=== PATIENT | male | born 1970 | race Caucasian/White ===

== ENCOUNTER 2017-09-05 00:57 | Emergency (ER) | payer SELFPAY ==
[~2017-09-05] VITALS: Ht 172.7 cm; Wt 80.0 kg
[2017-09-05 01:18] VITALS: BP 157/91; PULSE 82; RESP 16; TEMP 97.6; O2SAT 100
[2017-09-05] MEDS ORDERED: LIDOCAINE 1%/EPINEPHrine 1:100,000 SOLN 20 ML VIAL INFIL ONE (02:30)
[2017-09-05] MEDS ORDERED: TETANUS/DIPHTHERIA TOXOID ADULT 0.5 ML VIAL IM ONE (02:30)
--- NOTE | 2017-09-05 02:31 | PD ---
HPI Chief Complaint: Fall Time Seen by Provider: 02:26 Travel History International Travel<30 days: No Contact w/Intl Traveler<30days: No Traveled to known affect area: No History of Present Illness HPI 47-year-old male presents for evaluation after fall. Apparently became intoxicated and tripped and fell and hit his head against the ground. No loss of consciousness. He has a laceration of the occipital scalp with some pain. Aggravated by falling. Last tetanus vaccination unknown. No other complaints. PFSH Past Medical History Hypertension: Yes Past Surgical History Other Surgery: Yes (HERNIA REPAIR ) Social History Alcohol Use: Yes Tobacco Use: Yes Substance Use: No Allergies-Medications (Allergen,Severity, Reaction): Coded Allergies: No Known Allergies (Unverified , 09/05/17) Reported Meds & Prescriptions Reported Meds & Active Scripts Active No Active Prescriptions or Reported Medications Review of Systems Except as stated in HPI: all other systems reviewed are Neg Physical Exam Narrative GENERAL: Disheveled male in no acute distress, obviously intoxicated SKIN: Warm and dry. 2 cm occipital scalp laceration HEAD: Skin as noted above normocephalic. EYES: Pupils equal and round. No scleral icterus. No injection or drainage. ENT: No nasal bleeding or discharge. Mucous membranes pink and moist. NECK: Trachea midline. No JVD. CARDIOVASCULAR: Regular rate and rhythm. No murmur appreciated. RESPIRATORY: No accessory muscle use. Clear to auscultation. Breath sounds equal bilaterally. GASTROINTESTINAL: Abdomen soft, non-tender, nondistended. Hepatic and splenic margins not palpable. MUSCULOSKELETAL: No obvious deformities. No clubbing. No cyanosis. No edema. NEUROLOGICAL: Awake and alert. No obvious cranial nerve deficits. Motor grossly within normal limits. Slurred speech PSYCHIATRIC: Appropriate mood and affect; insight and judgment normal. Data Data Last Documented VS Vital Signs Date Time Temp Pulse Resp B/P (MAP) Pulse Ox O2 Delivery O2 Flow Rate FiO2 09/05/17 01:18 97.6 82 16 157/91 (113) 100 Orders Orders Tetanus/Diphtheria Tox Adult (Tetanus/Di (09/05/17 02:30) Ct Brain W/O Iv Contrast(Rout) (09/05/17 ) Ct Cerv Spine W/O Contrast (09/05/17 ) Lidocai-Epi 1%-1:100,000 Inj (Xylocaine- (09/05/17 02:30) [facility] Medical Decision Making Medical Screen Exam Complete: Yes Emergency Medical Condition: Yes Medical Record Reviewed: Yes Differential Diagnosis Scalp laceration, intoxication, skull fracture, intracranial hemorrhage Narrative Course CT imaging of the brain, cervical spine, laceration repair, tetanus updated. CT imaging reveals chronic degenerative changes of the spine but no acute abnormality's. The laceration was repaired with yousif, he verbally consented. When he is sober he will be discharged. Procedures Procedure Narrative LACERATION LOCATION: Occipital scalp LENGTH: 2 cm NUMBER OF STITCHES/YOUSIF: 9 REPAIR: The area of the laceration was prepped with Betadine and sterilely draped. The laceration was infiltrated with 1% lidocaine with epinephrine the wound was copiously irrigated and explored without evidence of foreign body, tendon injury or neurovascular injury. The wound was closed using yousif. This was a single layer repair. A sterile dressing was applied. The patient was advised to keep the dressing clean and dry. Patient tolerated the procedure well. Diagnosis Primary Impression: Occipital scalp laceration Additional Impression: Alcohol intoxication Additional Instructions: Wash the wounds daily with soap and water and apply antibiotic cream. Return in 7-10 days for staple removal. Med/Other Pt SpecificInfo: Wound Care Scripts No Active Prescriptions or Reported Meds Disposition: 01 DISCHARGE HOME Condition: Stable Marbin Campbell Sep 05, 2017 02:31
--- NOTE | 2017-09-05 02:45 | RADRPT ---
EXAM DATE/TIME: 09/05/2017 02:33 [facility] COMPARISON: No previous studies available for comparison. INDICATIONS : Trauma, fall. RADIATION DOSE: 66.34 CTDIvol (mGy) MEDICAL HISTORY : Hypertension. SURGICAL HISTORY : None. ENCOUNTER: Initial ACUITY: 1 day PAIN SCALE: 0/10 LOCATION: cranial TECHNIQUE: Multiple contiguous axial images were obtained of the head. Using automated exposure control and adj ustment of the mA and/or kV according to patient size, radiation dose was kept as low as reasonably a chievable to obtain optimal diagnostic quality images. DICOM format image data is available electro nically for review and comparison. FINDINGS: CEREBRUM: The ventricles are normal for age. No evidence of midline shift, mass lesion, hemorrhage or acute in farction. No extra-axial fluid collections are seen. POSTERIOR FOSSA: The cerebellum and brainstem are intact. The 4th ventricle is midline. The cerebellopontine angle i s unremarkable. EXTRACRANIAL: The visualized portion of the orbits is intact. SKULL: The calvaria is intact. No evidence of skull fracture. CONCLUSION: Negative exam. Denys Edwards MD on September 05, 2017 at 2:43 Board Certified Radiologist. This report was verified electronically.
--- NOTE | 2017-09-05 02:54 | RADRPT ---
EXAM DATE/TIME: 09/05/2017 02:33 [facility] COMPARISON: No previous studies available for comparison. INDICATIONS : Trauma, fall. RADIATION DOSE: 16.29 CTDIvol (mGy) MEDICAL HISTORY : Hypertension. SURGICAL HISTORY : None. ENCOUNTER: Initial ACUITY: 1 day PAIN SCALE: 0/10 LOCATION: neck TECHNIQUE: Volumetric scanning of the cervical spine was performed. Multiplanar reconstructions in the sagittal, coronal and oblique axial planes were performed. Using automated exposure control and adjustment o f the mA and/or kV according to patient size, radiation dose was kept as low as reasonably achievable to obtain optimal diagnostic quality images. DICOM format image data is available electronically f or review and comparison. FINDINGS: Sagittal and coronal reconstructions show degenerative disc disease at every cervical level with loss of disc height and, at some levels associated uncovertebral ridging. A small posterior ridge is pred ominately at C3-4 and C6-7 encroachment on the anterior epidural space but do not result in significa nt spinal stenosis. Vertebral body heights are maintained throughout without fracture or listhesis. C2-C3: The bony spinal canal is normal in size. No evidence of disc bulge or herniation. The neural forami na are bilaterally patent. C3-C4: Uncovertebral ridging encroaches on the neural foramina bilaterally spinal canal is adequate. C4-C5: Uncovertebral ridging encroaches on both neural foramina, left greater than right. Spinal canal remai ns adequate C5-C6: Uncovertebral ridging narrows both neural foramina. Spinal canal remains adequate with some encroachm ent on the anterior epidural space predominantly rightward C6-C7: Uncovertebral ridging narrows both neural foramina. Minimal encroachment on the anterior epidural spa ce but no significant stenosis. C7-T1: The bony spinal canal is normal in size. No evidence of disc bulge or herniation. The neural forami na are bilaterally patent. CONCLUSION: 1. Multilevel degenerative disc disease with loss of disc height and some uncovertebral ridging at ju st about every cervical level. 2. While the spinal canal appears to be adequate throughout, there is foraminal narrowing which may b e severe enough to compromise bilateral C4, left C5, bilateral C6 and bilateral C7 nerve roots. 3. No fracture or listhesis. Denys Edwards MD on September 05, 2017 at 2:46 Board Certified Radiologist. This report was verified electronically.
[2017-09-05 05:28] VITALS: BP 136/79
== END 2017-09-05 05:29 | disposition home or self-care (01) ==
LOC: NEPD 00:57
DX: S01.01XA Laceration without foreign body of scalp, initial encounter (principal); F10.129 Alcohol abuse with intoxication, unspecified; I10 Essential (primary) hypertension; M50.31 Other cervical disc degeneration, high cervical region; M50.321 Other cervical disc degeneration at C4-C5 level; M50.322 Other cervical disc degeneration at C5-C6 level; W01.0XXA Fall on same level from slipping, tripping and stumbling without subsequent striking against object, initial encounter; Z23 Encounter for immunization; Z72.0 Tobacco use
CPT/HCPCS: 12001; 70450; 72125; 90471; 99284; L0150

== ENCOUNTER 2017-09-07 09:25 | Emergency (ER) | payer SELFPAY ==
[~2017-09-07] VITALS: Ht 175.3 cm; Wt 75.0 kg
[2017-09-07 09:39] VITALS: BP 151/76; PULSE 83; RESP 15; TEMP 98.2; O2SAT 99
--- NOTE | 2017-09-07 11:09 | PD ---
HPI Chief Complaint: Wound/Suture/Staple Re-Check Time Seen by Provider: 11:06 Travel History International Travel<30 days: No Contact w/Intl Traveler<30days: No Traveled to known affect area: No History of Present Illness HPI 47-year-old male presents to the ED for evaluation of scalp yousif. Patient states that there were placed 4 days ago. He states that he is leaving for [place] one like to have them removed. He denies fevers, chills, nausea, vomiting , discharge from the wound, swelling of the wound, bleeding from the wound. PFS Past Medical History Hypertension: Yes Past Surgical History Other Surgery: Yes (HERNIA REPAIR ) Social History Alcohol Use: Yes Tobacco Use: Yes Substance Use: No Allergies-Medications (Allergen,Severity, Reaction): Coded Allergies: No Known Allergies (Unverified , 09/07/17) Reported Meds & Prescriptions Reported Meds & Active Scripts Active No Active Prescriptions or Reported Medications Review of Systems Except as stated in HPI: all other systems reviewed are Neg Physical Exam Narrative GENERAL: Well-nourished, well-developed white male in no acute distress. SKIN: Focused skin assessment warm/dry. There approximately 7-10 yousif in the occipital wound. No bleeding. No signs of infection. HEAD: Normocephalic. EYES: No scleral icterus. No injection or drainage. NECK: Supple, trachea midline. No JVD or lymphadenopathy. CARDIOVASCULAR: Regular rate and rhythm without murmurs, gallops, or rubs. RESPIRATORY: Breath sounds equal bilaterally. No accessory muscle use. GASTROINTESTINAL: Abdomen soft, non-tender, nondistended. MUSCULOSKELETAL: No cyanosis, or edema. BACK: Nontender without obvious deformity. No CVA tenderness. Data Data Last Documented VS Vital Signs Date Time Temp Pulse Resp B/P (MAP) Pulse Ox O2 Delivery O2 Flow Rate FiO2 09/07/17 09:39 98.2 83 15 151/76 (101) 99 MDM Medical Decision Making Medical Screen Exam Complete: Yes Emergency Medical Condition: No Differential Diagnosis Laceration repair versus wound infection versus suture removal versus other Narrative Course 47-year-old male presents to the ED requesting staple removal. These were placed 4 days ago in this ED. Patient states that he is leaving for [place] and doesn't have any way to have them removed there. On exam there are well-placed staple the scalp without signs of infection. I explained to the patient that he can have them removed at any emergency room along the way as long as it is within the 7-10 day period. A medical screening exam was performed: At the time of evaluation the presenting medical condition was determined not to be of an emergent nature. The patient was given the option of receiving additional care, but declined. Patient was given options for additional community resources from which to obtain care. The Patient Has Been advised to seek medical attention for their presenting complaint. The patient has been advised to return to the ER at any time if an emergent condition develops. Diagnosis Primary Impression: Encounter for wound re-check Scripts No Active Prescriptions or Reported Meds Condition: Silvia Avila Sep 07, 2017 11:09
== END 2017-09-07 12:01 | disposition left against medical advice (07) ==
LOC: NEPK 09:25
DX: S01.01XD Laceration without foreign body of scalp, subsequent encounter (principal); X58.XXXD Exposure to other specified factors, subsequent encounter; I10 Essential (primary) hypertension; Z72.0 Tobacco use
CPT/HCPCS: 99281